=== PATIENT | female | born 1975 | race Caucasian/White ===

== ENCOUNTER 2023-02-26 20:21 | Emergency (ER) | payer OTHER ==
[2023-02-26] MEDS ORDERED: BABY ASPIRIN 81 MG CHEW PO ONE (20:47)
[2023-02-26 21:11] LABS: Absolute Neutrophil Ct (ANC) 6.49 x10^3/uL (1.4-6.9); BASOPHIL % 0.4 % (0.0-0.4); Basophil (Absolute #) 0.04 x10^3/uL (0-0.4); Eosinophil % 1.1 % (0.00-5.0); Eosinophil (Absolute #) 0.11 x10^3/uL (0-0.5); Hematocrit 38.9 % (35-47); Hemoglobin 12.4 g/dL (12.0-16.0); IMMATURE GRAN # 0.03 x10^3u/L (0.00-0.03); IMMATURE GRAN % 0.3 % (0.00-0.4); Lymphocyte (Absolute #) 2.98 x10^3/uL (1.0-4.6); Lymphocytes % 28.7 % (24.0-44.0); Mean Cell Volume 89.4 fL (78-100); Mean Corpuscular Hemoglobin 28.5 pg (26-32); Mean Corpuscular Hgb Concent. 31.9 g/dL (32-36); Mean Platelet Volume 8.7 fL (7.5-11.0); Monocyte (Absolute #) 0.74 x10^3/uL (0.0-1.3); Monocytes % 7.1 % (0.0-12.0); Neutrophil % 62.4 % (36.0-66.0); Platelet Count 362 x10^3/uL (150-450); Red Blood Count 4.35 x10^6/uL (4.1-5.4); Red Cell Distribution Width 13.2 % (11.5-14.0); White Blood Count 10.4 x10^3/uL (4.0-10.5)
[2023-02-26] MEDS ORDERED: BABY ASPIRIN 81 MG CHEW ONE (21:20)
[2023-02-26 21:21] LABS: ALBUMIN 4.2 g/dL (3.5-5.0); ALKALINE PHOSPHATASE 89 U/L (38-126); ANION GAP 13.3 MEQ/L (5-15); BLOOD UREA NITROGEN 16 mg/dL (7-17); CHLORIDE 98 mmol/L (98-107); Calcium 9.4 mg/dL (8.4-10.2); Carbon Dioxide 31 mmol/L (22-30); Creatinine 1 0.72 mg/dL (0.52-1.04); EST GLOMERULAR FILTRATION RATE > 60.0 ML/MIN; Glucose 85 mg/dL (74-106); Potassium 4.3 mmol/L (3.5-5.1); SGOT/AST 32 U/L (14-36); SGPT/ALT 31 U/L (0-35); SODIUM 138 mmol/L (137-145); Total Protein 7.6 g/dL (6.3-8.2)
[2023-02-26 21:33] LABS: NT PRO BNPII < 20.0 pg/mL (<300); TROPONIN < 0.012 ng/mL (0.000-0.034)
--- NOTE | 2023-02-26 22:21 | ERPHSYRPT ---
- History of Present Illness Time Seen by Provider: 02/26/23 20:25 Historian: patient Exam Limitations: no limitations Patient Subjective Stated Complaint: pt states she has been having "mid upper sternal intermittent sharp stabbing pain for a week, this had also went into right shoulder, then 2-3 days ago the pain got worse and more frequently like an ice pick to my upper chest. Yesterday and today I have been hot and sweaty. for 2-3 weeks I have gotten dizzy a few times if I stand up from sqatting position but I haven't passed out. It feels like everything around me is spinning". Triage Nursing Assessment: pt ambulated into room 6 independently with slow steady gait after standing on scale for weight acquisition. pt is alert and oriented times three, resp even and unlabored, able to move all extremities, and able to speak in complete sentences. denies SOB, difficulty breathing, nausea, vomiting, difficulties with urination or bowel movements. skin warm pink dry and intact, no diaphoresis noted at this time. apical heart is normal, regular with HR in upper 80's lower 90's. pain is not reproducible (back, shoulder, or chest) with palpation. bilat pedal and radial pulses palpable, strong, and equal. no edema noted. Physician History: 47 years old female with history of SLE/Sjogren presented in the ER with chief complaint of intermittent substernal chest pain for last 2 to 3 days with some radiation to right shoulder. Patient describes this as a dull aching mild to moderate without any significant aggravating or relieving factors. Denies associated palpitations or shortness of breath. No fever or chills reported. Denies any URI/cough congestion symptoms. Also report feeling dizzy and light headed for the last few weeks with standing up and activity. Denies any focal numbness tingling or weakness. No abdominal pain nausea or vomiting reported. Timing/Duration: day(s) (2), intermittent, worse Activities at Onset: activity, rest Quality: sharpness Location: substernal Chest Pain Radiation: arm Severity of Pain-Max: moderate Severity of Pain-Current: mild Modifying Factors: Improves With: nothing Associated Symptoms: denies symptoms Prior Chest Pain/Cardiac Workup: no prior chest pain Nitro Today/Relief: no nitro taken today Aspirin Treatment Today: unknown Allergies/Adverse Reactions: Sulfa (Sulfonamide Antibiotics) Allergy (Severe, Verified 02/26/23 20:24) Tightness of Throat Hx Tetanus, Diphtheria Vaccination/Date Given: No Hx Influenza Vaccination/Date Given: Yes Hx Pneumococcal Vaccination/Date Given: Yes Immunizations Up to Date: Yes Travel Risk - International Travel Have you traveled outside of the country in past 3 weeks: No - Coronavirus Screening Are you exhibiting any of the following symptoms?: No Close contact with a COVID-19 positive Pt in past 14-21 Days: No - Vaccine Status Have you recieved a Covid-19 vaccination: Yes Singing Telegram Performer: Moderna - Vaccination Dates Date of 2cond Vaccination (if applicable): 01/23/21 - Review of Systems Constitutional: No Symptoms Eyes: No Symptoms Ears, Nose, & Throat: No Symptoms Respiratory: No Symptoms Cardiac: Chest Pain Abdominal/Gastrointestinal: No Symptoms Genitourinary Symptoms: No Symptoms Musculoskeletal: Back Pain Skin: No Symptoms Neurological: No Symptoms Psychological: No Symptoms Endocrine: No Symptoms Hematologic/Lymphatic: No Symptoms Immunological/Allergic: No Symptoms - Past Medical History Pertinent Past Medical History: Yes Neurological History: Migraines ENT History: No Pertinent History Cardiac History: Arrhythmia, High Cholesterol, Hypertension Respiratory History: Asthma Endocrine Medical History: Diabetes Type II Musculoskeletal History: Fibromyalgia, Rheumatoid Arthritis GI Medical History: Other History: Renal Disease Psycho-Social History: Bipolar, Depression Female Reproductive Disorders: Fibroids, Uterine Cancer Other Medical History: sle, sjorgen's, RA, tachycardia, lupus nephritis, peripheral neuropathy, - Past Surgical History Past Surgical History: Yes Neuro Surgical History: No Pertinent History Cardiac: No Pertinent History Respiratory: No Pertinent History Gastrointestinal: Cholecystectomy Genitourinary: No Pertinent History Musculoskeletal: No Pertinent History Female Surgical History: Hysterectomy, Section Other Surgical History: x2. bilat carpal tunnel and cubetal tunnel. - Social History Smoking Status: Former smoker Exposure to second hand smoke: No Drug Use: none Patient Lives Alone: No - Female History Hx Last Menstrual Period: hysterectomy 2007 Hx Now: (unkn) - Nursing Vital Signs Nursing Vital Signs: Initial Vital Signs Temperature 97.7 F 02/26/23 20:25 Pulse Rate 92 H 02/26/23 20:25 Respiratory Rate 23 02/26/23 20:25 Blood Pressure 127/91 02/26/23 20:25 O2 Sat by Pulse Oximetry 100 02/26/23 20:25 Pain Scale Pain Intensity 8 - Physical Exam General Appearance: no apparent distress, alert Eye Exam: PERRL/EOMI, eyes nml inspection Ears, Nose, Throat Exam: normal ENT inspection, TMs normal, pharynx normal, moist mucous membranes Neck Exam: normal inspection, non-tender, supple, full range of motion Respiratory Exam: normal breath sounds, lungs clear Cardiovascular Exam: regular rate/rhythm, normal heart sounds Gastrointestinal/Abdomen Exam: soft, normal bowel sounds, No tenderness Back Exam: normal inspection, normal range of motion Extremity Exam: normal inspection, normal range of motion Neurologic Exam: alert, oriented x 3, cooperative, mask design engineer II-XII nml as tested, normal mood/affect, nml cerebellar function, nml station & gait, sensation nml, No motor deficits Skin Exam: normal color SpO2 Interpretation: normal SpO2: 98 O2 Delivery: Room Air - Course EKG Interpreted by Me: RATE ([id number]), Sinus Rhythm, NORMAL AXIS, NORMAL INTERVALS, Non-specific ST Changes Ordered Tests: Active Orders 24 hr Category Date Time Status EKG-ER Only STAT Care 02/26/23 21:28 Active IV Insertion STAT Care 02/26/23 21:27 Active CHEST 1 VIEW (PORTABLE) Stat Exams 02/26/23 20:47 Taken CBC W DIFF Stat Lab 02/26/23 21:08 Completed CMP Stat Lab 02/26/23 21:08 Completed D-DIMER QUANTITATIVE Stat Lab 02/26/23 21:08 Completed NT PRO BNPII Stat Lab 02/26/23 21:08 Completed TROPONIN Q4H Lab 02/26/23 21:08 Completed TROPONIN Q4H Lab 02/27/23 01:00 Ordered TROPONIN Q4H Lab 02/27/23 05:00 Ordered Medication Summary Discontinued Medications Generic Name Dose Route Start Last Admin Trade Name Freq PRN Reason Stop Dose Admin Aspirin 324 mg 02/26/23 20:47 02/26/23 21:20 Aspirin 81 Mg Tab.Chew PO 02/26/23 20:48 324 mg STAT ONE Administration Aspirin Confirm 02/26/23 21:20 Aspirin 81 Mg Tab.Chew Administered 02/26/23 21:21 Dose 324 mg .ROUTE .STK-MED ONE Lab/Rad Data: Laboratory Result Diagrams 02/26/23 21:08 02/26/23 21:08 Laboratory Results 02/26/23 02/26/2302/26/23 Range/Units 21:08 21:08 21:08 WBC (4.0-10.5) x10^3/uL RBC (4.1-5.4) x10^6/uL Hgb (12.0-16.0) g/dL Hct (35-47) % MCV (78-100) fL MCH (26-32) pg MCHC (32-36) g/dL RDW (11.5-14.0) % Plt Count (150-450) x10^3/uL MPV (7.5-11.0) fL Gran % (36.0-66.0) % Immature Gran % (Auto) (0.00-0.4) % Nucleat RBC Rel Count (0.00-0.1) % Eos # (Auto) (0-0.5) x10^3/uL Immature Gran # (Auto) (0.00-0.03) x10^3u/L Absolute Lymphs (auto) (1.0-4.6) x10^3/uL Absolute Monos (auto) (0.0-1.3) x10^3/uL Absolute Nucleated RBC (0.00-0.01) x10^3u/L Lymphocytes % (24.0-44.0) % Monocytes % (0.0-12.0) % Eosinophils % (0.00-5.0) % Basophils % (0.0-0.4) % Absolute Granulocytes (1.4-6.9) x10^3/uL Basophils # (0-0.4) x10^3/uL D-Dimer 0.21 (0.0-0.50) mg/L Sodium 138 (137-145) mmol/L Potassium 4.3 (3.5-5.1) mmol/L Chloride 98 (98-107) mmol/L Carbon Dioxide 31 H (22-30) mmol/L Anion Gap 13.3 (5-15) MEQ/L BUN 16 (7-17) mg/dL Creatinine 0.72 (0.52-1.04) mg/dL Estimated GFR > 60.0 ML/MIN Glucose 85 (74-106) mg/dL Calcium 9.4 (8.4-10.2) mg/dL Total Bilirubin 0.60 (0.2-1.3) mg/dL AST 32 (14-36) U/L ALT 31 (0-35) U/L Alkaline Phosphatase 89 (38-126) U/L Troponin I < 0.012 (0.000-0.034) ng/mL NT-Pro-B Natriuret Pep < 20.0 (<300) pg/mL Serum Total Protein 7.6 (6.3-8.2) g/dL Albumin 4.2 (3.5-5.0) g/dL 02/26/23 Range/Units 21:08 WBC 10.4 (4.0-10.5) x10^3/uL RBC 4.35 (4.1-5.4) x10^6/uL Hgb 12.4 (12.0-16.0) g/dL Hct 38.9 (35-47) % MCV 89.4 (78-100) fL MCH 28.5 (26-32) pg MCHC 31.9 L (32-36) g/dL RDW 13.2 (11.5-14.0) % Plt Count 362 (150-450) x10^3/uL MPV 8.7 (7.5-11.0) fL Gran % 62.4 (36.0-66.0) % Immature Gran % (Auto) 0.3 (0.00-0.4) % Nucleat RBC Rel Count 0.0 (0.00-0.1) % Eos # (Auto) 0.11 (0-0.5) x10^3/uL Immature Gran # (Auto) 0.03 (0.00-0.03) x10^3u/L Absolute Lymphs (auto) 2.98 (1.0-4.6) x10^3/uL Absolute Monos (auto) 0.74 (0.0-1.3) x10^3/uL Absolute Nucleated RBC 0.00 (0.00-0.01) x10^3u/L Lymphocytes % 28.7 (24.0-44.0) % Monocytes % 7.1 (0.0-12.0) % Eosinophils % 1.1 (0.00-5.0) % Basophils % 0.4 (0.0-0.4) % Absolute Granulocytes 6.49 (1.4-6.9) x10^3/uL Basophils # 0.04 (0-0.4) x10^3/uL D-Dimer (0.0-0.50) mg/L Sodium (137-145) mmol/L Potassium (3.5-5.1) mmol/L Chloride (98-107) mmol/L Carbon Dioxide (22-30) mmol/L Anion Gap (5-15) MEQ/L BUN (7-17) mg/dL Creatinine (0.52-1.04) mg/dL Estimated GFR ML/MIN Glucose (74-106) mg/dL Calcium (8.4-10.2) mg/dL Total Bilirubin (0.2-1.3) mg/dL AST (14-36) U/L ALT (0-35) U/L Alkaline Phosphatase (38-126) U/L Troponin I (0.000-0.034) ng/mL NT-Pro-B Natriuret Pep (<300) pg/mL Serum Total Protein (6.3-8.2) g/dL Albumin (3.5-5.0) g/dL - Progress Progress: improved, re-examined Air Movement: good Progress Note: 02/26/23 22:21 47 years old female with history of SLE/Sjogren presented in the ER with chief complaint of intermittent substernal chest pain for last 2 to 3 days with some radiation to right shoulder. Patient describes this as a dull aching mild to moderate without any significant aggravating or relieving factors. Denies associated palpitations or shortness of breath. No fever or chills reported. Denies any URI/cough congestion symptoms. Also report feeling dizzy and lightheaded for the last few weeks with standing up and activity. Denies any focal numbness tingling or weakness. No abdominal pain nausea or vomiting reported. Patient does not want any pain medication, EKG did not show any acute ST elevation, will obtain chest pain work-up including D-dimers. 02/26/23 23:20 Patient on reevaluation feeling better, not in any distress. Does not want any pain medication. Has negative troponins and D-dimers. Normal white count, fairly unremarkable chemistries and chest x-ray negative for any acute cardiopulmonary finding reviewed by me, official report is pending. With patient's symptoms going on for last couple of days 1 negative troponin rules it out. Do not think she needs serial troponin. Has low heart score. Her pain is nonspecific and I believe it is more for secondary to her Sjogren causing esophagitis. I will give her a shot of IV Protonix and recommended continue with omeprazole, will also give Carafate to go home. I recommended outpatient follow-up with primary care and cardiology for further evaluation if chest pain persist. Discussed signs symptoms of worsening needing return to ER which she seems understanding. Stable for discharge. 02/26/23 23:23 Blood Culture(s) Obtained: No Antibiotics given: No Counseled pt/family regarding: lab results, diagnosis, need for follow-up, rad results Medical Desision Making - Independent Historian Additional History obtained from: Spouse - Diagnostic Testing Diagnostic test were ordered, analyzed, and reviewed by me: Yes Radiological Interpretation: Interpreted by me, Reviewed by me - Departure Departure Disposition: Home Clinical Impression: Atypical chest pain Condition: Stable Critical Care Time: No Referrals: CHATA PATRICIO DO [NON-STAFF PHY W/O PRIVILEGES] - Follow up with PCP 2 days AASHISH SANON [CONSULTING PHYSICIAN] - Follow up/PCP as directed (Call in 2 days for appointment for reevaluation) Instructions: Angina (DC) Additional Instructions: Follow-up with primary care and cardiology for reevaluation early next week. Continue with omeprazole and take Tylenol as needed. Return to ER for intractable chest pain or if having difficulty breathing/palpitations etc. Prescriptions: Sucralfate 1 gm [Carafate 1 GM] 1 g PO ACHS #20 tablet
[2023-02-26 23:03] VITALS: BP 115/78; PULSE 84
[2023-02-26 23:24] VITALS: O2SAT 98
[2023-02-26] MEDS ORDERED: PROTONIX 40 MG IV IV ONE ×2 (23:25→23:27)
--- NOTE | 2023-02-27 08:31 | XRAY ---
Indication: Chest pain. Comparison: None Portable chest demonstrates normal heart and lungs. Bony thorax intact with mild degenerative changes.
== END 2023-02-26 23:40 | disposition home or self-care (01) ==
LOC: ED 20:21
DX: R07.89 Other chest pain (principal); R42 Dizziness and giddiness; E78.5 Hyperlipidemia, unspecified; I10 Essential (primary) hypertension; E11.42 Type 2 diabetes mellitus with diabetic polyneuropathy; M32.9 Systemic lupus erythematosus, unspecified
CPT/HCPCS: 36000; 36415; 71045; 80053; 83880; 84484; 85025; 85379; 93005; 96374; 99284; A9270-GY